=== PATIENT | female | born 1990 | race Caucasian/White ===

== ENCOUNTER 2017-03-01 13:10 | Emergency (ER) | payer SELFPAY ==
[~2017-03-01 13:10] MED LIST: ZOFRAN ODT4 MG PO
[2017-03-01 14:05] VITALS: BP 112/65
[2017-03-01] MEDS ORDERED: IBUPROFEN600 MG PO (14:06)
[2017-03-01] MEDS ORDERED: PENICILLN VK500 MG PO (14:06)
== END 2017-03-01 14:14 | disposition home or self-care (01) | DRG 153 ==
LOC: ED 13:10
DX: J02.0 Streptococcal pharyngitis (principal); R50.9 Fever, unspecified; R11.0 Nausea

== ENCOUNTER 2017-07-07 00:25 | Emergency (ER) | payer OTHER ==
[~2017-07-07] VITALS: Ht 152.4 cm; Wt 45.5 kg
[~2017-07-07 00:25] MED LIST changes: +IBUPROFEN600 MG PO; +PENICILLN VK500 MG PO
[2017-07-07 02:12] LABS: INFLUENZA A NONE DETECTED (NONE DETECT); INFLUENZA B NONE DETECTED (NONE DETECT)
[2017-07-07] MEDS ORDERED: AMOXICILLIN500 MG PO (02:18)
[2017-07-07 03:08] VITALS: BP 120/79
== END 2017-07-07 03:09 | disposition home or self-care (01) | DRG 153 ==
LOC: ED 00:25
PROVIDERS: Emergency Medicine
DX: J02.0 Streptococcal pharyngitis (principal)

== ENCOUNTER 2017-12-15 14:52 | Emergency (ER) | payer OTHER ==
[~2017-12-15] VITALS: Ht 152.4 cm; Wt 43.6 kg
[~2017-12-15 14:52] MED LIST changes: +AMOXICILLIN500 MG PO
[2017-12-15 15:31] LABS: INFLUENZA A NONE DETECTED (NONE DETECT); INFLUENZA B NONE DETECTED (NONE DETECT)
[2017-12-15] MEDS ORDERED: TAM75CAP PO (15:41)
[2017-12-15 15:49] VITALS: BP 131/76
== END 2017-12-15 15:57 | disposition home or self-care (01) | DRG 195 ==
LOC: ED 14:52
PROVIDERS: Family Medicine
DX: J10.1 Influenza due to other identified influenza virus with other respiratory manifestations (principal); F17.210 Nicotine dependence, cigarettes, uncomplicated; G43.909 Migraine, unspecified, not intractable, without status migrainosus; R05 Cough; R09.89 Other specified symptoms and signs involving the circulatory and respiratory systems; R53.83 Other fatigue; H92.01 Otalgia, right ear

== ENCOUNTER 2018-02-22 17:27 | Emergency (ER) | payer OTHER ==
[~2018-02-22] VITALS: Ht 152.4 cm; Wt 43.6 kg
[~2018-02-22 17:27] MED LIST changes: +TAM75CAP PO
[2018-02-22 18:03] LABS: URINE BILIRUBIN - DIPSTICK NEGATIVE (NEGATIVE); URINE BLOOD DIPSTICK NEGATIVE (NEGATIVE); URINE CLARITY CLEAR; URINE COLOR YELLOW; URINE GLUCOSE - DIPSTICK NEGATIVE (NEGATIVE); URINE KETONE NEGATIVE (NEGATIVE); URINE LEUK ESTERASE NEGATIVE (NEGATIVE); URINE NITRITE - DIPSTICK NEGATIVE (Negative); URINE PROTEIN - DIPSTICK NEGATIVE (NEG-TRACE); URINE SPECIFIC GRAVITY >=1.030; URINE UROBILINOGEN - DIPSTICK 0.2 E.U./dL (0.2)
[2018-02-22] MEDS ORDERED: PYRIDIUM200 MG PO (18:05)
[2018-02-22] MEDS ORDERED: PROVENTIL108 MCG/AC IN (18:05)
[2018-02-22] MEDS ORDERED: ZITHROMAX250 MG PO (18:05)
[2018-02-22 18:09] VITALS: BP 127/91
== END 2018-02-22 18:15 | disposition home or self-care (01) ==
LOC: ED 17:27
PROVIDERS: Emergency Medicine
DX: J40 Bronchitis, not specified as acute or chronic (principal); F17.210 Nicotine dependence, cigarettes, uncomplicated; R30.0 Dysuria; R35.0 Frequency of micturition; R09.81 Nasal congestion; R05 Cough; R53.83 Other fatigue

== ENCOUNTER 2018-04-06 13:20 | Emergency (ER) | payer OTHER ==
[~2018-04-06] VITALS: Ht 152.4 cm; Wt 45.0 kg
[~2018-04-06 13:20] MED LIST changes: +PROVENTIL108 MCG/AC IN; +PYRIDIUM200 MG PO; +ZITHROMAX250 MG PO
[2018-04-06 14:06] LABS: URINE BILIRUBIN - DIPSTICK NEGATIVE (NEGATIVE); URINE BLOOD DIPSTICK NEGATIVE (NEGATIVE); URINE COLOR YELLOW; URINE GLUCOSE - DIPSTICK NEGATIVE (NEGATIVE); URINE KETONE NEGATIVE (NEGATIVE); URINE LEUK ESTERASE NEGATIVE (NEGATIVE); URINE NITRITE - DIPSTICK NEGATIVE (Negative); URINE PH 5.5 (4.5-8.0); URINE PROTEIN - DIPSTICK NEGATIVE (NEG-TRACE); URINE SPECIFIC GRAVITY >=1.030; URINE UROBILINOGEN - DIPSTICK 0.2 E.U./dL (0.2)
[2018-04-06 14:07] LABS: HEMOGLOBIN 13.3 g/dl (12.0-16.0); IMMATURE GRANULOCYTES 0.2 % (0.0-5.0); MEAN CELL VOLUME 83.2 fL CALC (80.0-100.0); MEAN CORPUSCULAR HGB 26.3 pG CALC (26.0-32.0); MEAN CORPUSCULAR HGB CONC 31.7 g/L CALC (32.0-36.0); NEUT# 7.06 thou/uL (2.00-7.15); RED BLOOD COUNT 5.05 mill/uL (4.20-5.60); RED CELL DISTRI WIDTH 12.6 % (11.5-15.5)
[2018-04-06 14:09] LABS: URINE CLARITY CLEAR
[2018-04-06 14:20] LABS: ALBUMIN 4.6 g/dL (3.2-5.0); ALKALINE PHOSPHATASE 60 u/l (38-126); ANION GAP 14 (6-22 (CALC)); BILIRUBIN, TOTAL 0.7 mg/dL (0.0-1.4); BUN 15 mg/dL (7-17); BUN/CREATININE RATIO 20 (12-20 (CALC)); CARBON DIOXIDE 28 mmol/l (22-30); CHLORIDE 105 mmol/l (95-108); CREATININE 0.8 mg/dL (0.5-1.0); GFR > 60 ML/MIN (>=60 (CALC)); GFR FOR AFR.AMER. > 60 ML/MIN (>=60 (CALC)); POTASSIUM 3.9 mmol/l (3.5-5.1); SGOT/AST 16 u/l (14-36); SGPT/ALT 22 u/l (9-52); SODIUM 143 mmol/l (137-146); TOTAL PROTEIN 7.5 g/dL (6.3-8.2)
[2018-04-06] MEDS ORDERED: BENTYL10 MG PO (14:27)
[2018-04-06] MEDS ORDERED: ZOFRAN4 MG/TAB PO (14:27)
[2018-04-06 14:50] VITALS: BP 93/55
== END 2018-04-06 14:50 | disposition home or self-care (01) ==
LOC: ED 13:20
PROVIDERS: Emergency Medicine
DX: K52.9 Noninfective gastroenteritis and colitis, unspecified (principal); F17.210 Nicotine dependence, cigarettes, uncomplicated; R11.2 Nausea with vomiting, unspecified; R19.7 Diarrhea, unspecified; R10.9 Unspecified abdominal pain

== ENCOUNTER 2018-07-09 20:45 | Emergency (ER) | payer OTHER ==
[~2018-07-09] VITALS: Ht 152.4 cm; Wt 45.0 kg
[~2018-07-09 20:45] MED LIST changes: +BENTYL10 MG PO; +ZOFRAN4 MG/TAB PO
[2018-07-09 21:42] LABS: HEMATOCRIT 41.7 % (37.0-47.0); HEMOGLOBIN 13.2 g/dl (12.0-16.0); IMMATURE GRANULOCYTES 0.2 % (0.0-5.0); MEAN CELL VOLUME 83.9 fL CALC (80.0-100.0); MEAN CORPUSCULAR HGB 26.6 pG CALC (26.0-32.0); MEAN CORPUSCULAR HGB CONC 31.7 g/L CALC (32.0-36.0); NEUT# 2.22 thou/uL (2.00-7.15); RED BLOOD COUNT 4.97 mill/uL (4.20-5.60); RED CELL DISTRI WIDTH 12.4 % (11.5-15.5)
[2018-07-09 22:19] LABS: INFLUENZA A NONE DETECTED (NONE DETECT); INFLUENZA B NONE DETECTED (NONE DETECT)
[2018-07-09 22:43] VITALS: BP 123/89
== END 2018-07-09 22:44 | disposition home or self-care (01) ==
LOC: ED 20:45
PROVIDERS: Family Medicine
DX: B34.9 Viral infection, unspecified (principal); F17.210 Nicotine dependence, cigarettes, uncomplicated; R50.9 Fever, unspecified; R05 Cough; R51 Headache; J34.89 Other specified disorders of nose and nasal sinuses; R53.83 Other fatigue

== ENCOUNTER 2018-08-14 18:19 | Emergency (ER) | payer OTHER ==
[~2018-08-14] VITALS: Ht 152.4 cm; Wt 45.0 kg
[2018-08-14 19:35] VITALS: BP 113/72
[2018-08-14] MEDS ORDERED: AMOX/K CLAV875 M1 PO (19:36)
== END 2018-08-14 19:35 | disposition home or self-care (01) ==
LOC: ED 18:19
DX: J40 Bronchitis, not specified as acute or chronic (principal); H66.90 Otitis media, unspecified, unspecified ear; F17.210 Nicotine dependence, cigarettes, uncomplicated; R50.9 Fever, unspecified; R05 Cough; R52 Pain, unspecified

== ENCOUNTER 2019-01-17 18:10 | Emergency (ER) | payer SELFPAY ==
[~2019-01-17] VITALS: Ht 152.4 cm; Wt 48.0 kg
[~2019-01-17 18:10] MED LIST changes: +AMOX/K CLAV875 M1 PO
[2019-01-17 18:50] LABS: HEMATOCRIT 39.1 % (37.0-47.0); HEMOGLOBIN 12.2 g/dl (12.0-16.0); IMMATURE GRANULOCYTES 0.2 % (0.0-5.0); MEAN CELL VOLUME 83.7 fL CALC (80.0-100.0); MEAN CORPUSCULAR HGB 26.1 pG CALC (26.0-32.0); MEAN CORPUSCULAR HGB CONC 31.2 g/L CALC (32.0-36.0); NEUT# 5.97 thou/uL (2.00-7.15); RED BLOOD COUNT 4.67 mill/uL (4.20-5.60); RED CELL DISTRI WIDTH 12.4 % (11.5-15.5)
[2019-01-17 19:12] LABS: URINE BILIRUBIN - DIPSTICK NEGATIVE (NEGATIVE); URINE BLOOD DIPSTICK NEGATIVE (NEGATIVE); URINE COLOR YELLOW; URINE GLUCOSE - DIPSTICK NEGATIVE (NEGATIVE); URINE KETONE NEGATIVE (NEGATIVE); URINE LEUK ESTERASE NEGATIVE (Negative); URINE NITRITE - DIPSTICK NEGATIVE (Negative); URINE PROTEIN - DIPSTICK NEGATIVE (NEG-TRACE); URINE SPECIFIC GRAVITY >=1.030; URINE UROBILINOGEN - DIPSTICK 0.2 E.U./dL (0.2)
[2019-01-17 19:22] LABS: ALBUMIN 4.8 g/dL (3.2-5.0); ALKALINE PHOSPHATASE 75 u/l (38-126); ANION GAP 15 (6-22 (CALC)); BUN 15 mg/dL (7-17); BUN/CREATININE RATIO 21 (12-20 (CALC)); CARBON DIOXIDE 29 mmol/l (22-30); CHLORIDE 102 mmol/l (95-108); CREATININE 0.7 mg/dL (0.5-1.0); GFR > 60 ML/MIN (>=60 (CALC)); GFR FOR AFR.AMER. > 60 ML/MIN (>=60 (CALC)); SGOT/AST 17 u/l (14-36); SODIUM 142 mmol/l (137-146); TOTAL PROTEIN 7.9 g/dL (6.3-8.2)
[2019-01-17 19:30] LABS: BILIRUBIN, TOTAL 0.4 mg/dL (0.0-1.4)
[2019-01-17 20:35] LABS: URINE CLARITY CLEAR
[2019-01-17] MEDS ORDERED: AMOXICILLIN875 MG PO (20:49)
[2019-01-17 20:55] VITALS: BP 124/85
== END 2019-01-17 20:55 | disposition home or self-care (01) | DRG 153 ==
LOC: ED 18:10
DX: J02.9 Acute pharyngitis, unspecified (principal); R59.0 Localized enlarged lymph nodes; R50.9 Fever, unspecified; R09.81 Nasal congestion; F17.210 Nicotine dependence, cigarettes, uncomplicated; R05 Cough